=== PATIENT | male | born 1960 | race Caucasian/White ===

== ENCOUNTER → 2022-11-30 | Outpatient (CLI) | payer OTHER ==
--- NOTE | 2022-12-02 13:20 | PE ---
EXAMINATION TYPE: PET CT fusion skull to thigh DATE OF EXAM: 11/30/2022 COMPARISON: NONE at this institution. HISTORY: Solitary pulmonary nodule, recent abnormal MRI . History of recent spinal surgery July 19. TECHNIQUE: Following the intravenous administration of 12.12 mCi of F-18 FDG, whole body images are performed from the skull base to the midthigh. Images are reviewed on the computer in the coronal, a xial, and sagittal planes. Reconstructed rotating images are created on independent workstation and reviewed on the computer. A localization and attenuation correction CT is performed in conjunction with the PET scan. Blood glucose level = 81. SCAN: Initial Scan FINDINGS: SKULL BASE AND NECK: Symmetric uptake at level of the vocal cords is presumed physiologic. Abnormal right supraclavicular mass or lymph node posterior to right thyroid axial image 55 has max SUV of 4.9 6. There is abnormal hypermetabolic 1.2 cm right level 3 axillary adenopathy lateral to this on same image. Max SUV is 5.17. Additional abnormal hypermetabolic level 1 or 2 right axillary adenopathy axi al image 61 is present. CHEST, MEDIASTINUM, AND HILAR REGION: Mild to moderate underlying emphysematous changes are present. There is hypermetabolic right hilar mass or lymph node axial image 98 measuring 1.6 x 2.2 cm, max SUV is 7.39. Abnormal hypermetabolic right tracheobronchial and subcarinal adenopathy along with pericar inal and paratracheal adenopathy is also identified. For reference there is 1.9 x 1.5 cm paracarinal lymph node axial image 85 with max SUV of 8.9. Abnormal hypermetabolic adenopathy extends into the an terior superior mediastinum. No definitive peripheral hypermetabolic masses or nodules in either lung. ABDOMEN AND PELVIS: No hypermetabolic adrenal masses. Normal excretion. Some areas of nonspecific bow el uptake. No definitive abnormal hypermetabolic uptake. OSSEOUS STRUCTURES: Metabolic osseous lesions for reference right superior acetabular focus axial jovita ge [address] correlate, this has max SUV of 7.39. There is abnormal right iliac hyper metabolic focus image [address] correlate, Max SUV is 13.4. Smaller hypermetabolic le ft sacral and iliac foci are seen. Hypermetabolic foci throughout the thoracic and lumbar spine are a lso present. For reference midthoracic spine posteriorly axial image 77. OTHER CT: Coronary artery calcifications are present. Exophytic small thin-walled cyst posteriorly fr om the left kidney are present. Small fat containing left inguinal hernia. Disc space narrowing and e ndplate sclerosis at the lumbosacral junction incidentally noted IMPRESSION: Abnormal right hilar mass and/or adenopathy. There is abnormal thoracic adenopathy. There is abnormal right supraclavicular and axillary adenopathy. There is osseous metastatic disease prese nt throughout
== END | disposition home or self-care (01) ==
LOC: RADPETMAIN 11:44
PROVIDERS: ATTEND Internal Medicine
DX: C79.51 Secondary malignant neoplasm of bone (principal); R91.1 Solitary pulmonary nodule
CPT/HCPCS: 78815; A9552

== ENCOUNTER → 2023-05-01 | Outpatient (CLI) | payer OTHER ==
--- NOTE | 2023-05-02 07:46 | MR ---
EXAMINATION TYPE: MR lumbar spine wo/w con DATE OF EXAM: 05/01/2023 COMPARISON: PET CT November 25, 2022 HISTORY: NO prior, hx of lung CA, back pain from bone mets TECHNIQUE: Multiplanar, multisequence images of the lumbar spine is performed without and with IV contrast, util izing 7.5ml mL intravenous Gadavist FINDINGS: Scoliotic curvature to the lumbosacral junction is redemonstrated. Sagittal images of the l umbar spine shows new height Loss involving the superior L2 endplate. There is slight grade 1 anterolisthesis L3 on L4 and grade 1 retrolisthesis L4 on L5. Multilevel disc desiccation is present. Persistent moderate to advanced dis c space narrowing with heterogeneous Modic type I endplate change at L5-S1 level. The conus medullar is is normal in position and signal ending at the mid-L1 level. There is 1.6 cm Tarlov cyst posterio r to S2 level sagittal image 8. The bone marrow signal intensity is overall heterogeneous making evaluation suboptimal small suspicio us lesions on PET/CT involving anterior L2 vertebra in the anterior superior L5 endplates are less we ll seen on MRI. Likely suspicious enhancing lesion posterior L2 level on MRI sagittal image 29 and in ferior L3 level sagittal image 22 for reference. Advise bone scan imaging to better evaluate due to o verall heterogeneity of bone marrow on MRI to confirm suspected increasing multifocal osseous metasta tic disease. Axial images at T12-L1 level appear within normal limits. Axial images at L1-L2 level show mild broad disc bulge minimally effaces the anterior sac and mild to moderate facet arthropathy bilaterally. Axial images at L2-L3 level moderate facet arthropathy and ligamentum flavum hypertrophy pacing the p osterolateral thecal sac. There is posterior spur disc complex effacing the anterior thecal sac with right foraminal disc protrusion component causing [id number] right-sided neural foraminal narro wing. Axial images at L3-L4 level show moderate facet arthropathy effacing the posterolateral thecal sac an d mild to moderate broad-based posterior disc protrusion effaces the anterior thecal sac. Bilateral n eural foramina are patent. Axial images at L4-L5 level shows moderate left greater than right facet arthropathy effacing the pos terior lateral thecal sac. There is mild broad disc bulge mildly effaces the anterior thecal sac. The re is mild to moderate left-sided neural foraminal narrowing due to foraminal disc protrusion compone nt. Axial images at L5-S1 level show subtle spondylolisthesis with moderate facet arthropathy bilaterally . Mild broad disc bulge is seen. There is advanced left and mild right-sided neural foraminal narrowi ng. There is encroachment on the left L5 nerve due to left foraminal disc protrusion component. There are several small simple-appearing thin-walled cysts scattered throughout the visualized portio ns of the left kidney. IMPRESSION: 1. Suboptimal study but almost certainly there is diffuse ossific metastatic disease which has progre ssed from prior PET/CT. 2. Multilevel spondylolisthesis and degenerative change in the lumbar spine as detailed above.
== END | disposition home or self-care (01) ==
LOC: RADMRIMAIN 14:30
PROVIDERS: ATTEND Radiology Radiation Oncology
DX: C79.51 Secondary malignant neoplasm of bone (principal); M43.16 Spondylolisthesis, lumbar region; M47.816 Spondylosis without myelopathy or radiculopathy, lumbar region
CPT/HCPCS: 72158; A9585

== ENCOUNTER → 2023-06-03 | Outpatient (CLI) | payer OTHER ==
--- NOTE | 2023-06-03 13:05 | MR ---
EXAMINATION TYPE: MR brain wo/w con DATE OF EXAM: 06/03/2023 12:33 PM CLINICAL INDICATION:Male, 63 years old with history of C79.51 SECONDARY MALIGNANT NEOPLASM OF BONE; H x of Lung cancer COMPARISON: Pet/CT 11/30/2022 TECHNIQUE: Multi planar, multi sequence imaging was performed through the brain including: T1, T2, In version recovery, susceptibility weighted imaging and gradient echo imaging and Diffusion weighted im aging. The patient was then given intravenous contrast and multi planar, T1 fat-saturation images wer e obtained. IV Contrast: 6.5 cc Gadavist FINDINGS: Scattered enhancing lesions are present within the brain including the left cerebellum measuring 4 mm and 4 mm. Right cerebellum measuring 7 mm. Right sd posterior laterally measuring 7 mm. Matthew-white matter junction within the left frontal lobe series 701 image 125 measuring 2 mm and right frontal l obe series 702 image 34, right temporal lobe image 36 both 2 mm. The matthew-white junctions, ventricular system, basal cisterns appear unremarkable. Diffusion-weighted imaging shows no evidence of restricted diffusion to suggest acute/subacute infarct. Intracranial art erial flow voids are maintained. Midline structures show no abnormality. Scattered foci of high T2 si gnal intensity are seen within the periventricular white matter. The susceptibility weighted images v entricular multiple punctate foci of blooming artifact most pronounced in the occipital lobes cerebel lar hemispheres right sd and also along the central sclerotic focus cortex. The bone marrow signal is within normal limits. Paranasal sinuses and mastoid air cells: No significant paranasal sinus disease. Visualized orbits: Orbital contents are intact. IMPRESSION: 1. Scattered enhancing foci compatible with metastatic disease given history of malignancy. 2. Nonspecific white matter change.
== END | disposition home or self-care (01) ==
LOC: RADMRIMAIN 11:32
PROVIDERS: ATTEND Radiology Radiation Oncology
DX: C79.51 Secondary malignant neoplasm of bone (principal); R90.82 White matter disease, unspecified
CPT/HCPCS: 70553; A9585

== ENCOUNTER 2023-06-28 15:59 | Inpatient (IN) | payer MEDICAID, OTHER ==
[2023-06-28 16:11] VITALS: TEMP 97.8
[2023-06-28] MEDS ORDERED: SODIUM CHLORIDE 0.9% 1,000 ML IV STA (16:15)
[2023-06-28] MEDS ORDERED: ONDANSETRON 4 MG/2 ML VIAL IVP PRN (16:17)
[2023-06-28] MEDS ORDERED: ACETAMINOPHEN TAB 325 MG TAB PO PRN (16:17)
[2023-06-28] MEDS ORDERED: NALOXONE 0.4 MG/ML 1 ML VIAL IV PRN (16:17)
--- NOTE | 2023-06-28 16:22 | ED ---
General Adult HPI - General Chief complaint: Altered Mental Status Stated complaint: combative Time Seen by Provider: 06/28/23 16:06 Source: family, EMS, RN notes reviewed, old records reviewed Mode of arrival: EMS Limitations: altered mental status - History of Present Illness Initial comments: Patient is a 63-year-old male who presents emergency Department complaining of agitation worsening altered mental status. Has stage IV lung cancer. Was undergoing chemotherapy which stopped. Was evaluated earlier today for similar complaints with plan for discharge home with hospice. Patient's took the patient home with plan for hospice however patient has been more agitated at home and does not follow direction. Patient's is concerned that she cannot take care of him in his current state which is why she brings him back in. No subsequent changes at home throughout the day, however patient's feels she can not take care of him. Brings him back in for admission to hospice after speaking with the hospice nurse. Brought in for inpatient admission for hospice evaluation. - Related Data Home Medications Medication Instructions Recorded Confirmed Gabapentin 600 mg PO TID 12/17/22 06/28/23 LORazepam [Ativan] 0.5 mg PO ONETIME 06/28/23 06/28/23 Morphine Sulfate ER [Ms Contin] 100 mg PO Q8H 06/28/23 06/28/23 dexAMETHasone [Decadron] See Taper PO DAILY 06/28/23 06/28/23 oxyCODONE HCL [oxyCODONE HCL (IR)] 30 mg PO Q4H 06/28/23 06/28/23 Allergies Allergy/AdvReac Type Severity Reaction Status Date / Time No Known Allergies Allergy Verified 06/28/23 17:13 Review of Systems ROS Statement: Those systems with pertinent positive or pertinent negative responses have been documented in the HPI. ROS Other: All systems not noted in ROS Statement are negative. Past Medical History Past Medical History: Cancer, Hypertension Additional Past Medical History / Comment(s): Lung CA History of Any Multi-Drug Resistant Organisms: None Reported Past Surgical History: Back Surgery Additional Past Surgical History / Comment(s): Back surgery 07/26 Smoking Status: Former smoker Past Alcohol Use History: None Reported Past Drug Use History: None Reported General Exam - General Exam Comments Initial Comments: General: Patient appears mildly agitated. Not cooperative.Patient appears cachectic. HEAD: Normal with no signs of head trauma. EYES: PERRLA, EOMI, conjunctiva normal, no discharge. Pupils are 3 mm equal bilaterally. ENT: Hearing grossly intact, normal oropharynx. RESPIRATORY: Clear breath sounds bilaterally. No wheezes, rales, or rhonchi. C/V: Regular rate and rhythm. S1 and S2 auscultated, no edema, peripheral pulses 2+ and intact throughout ABD: Abd is soft, nontender, nondistended EXT: Normal range of motion, no obvious deformity SKIN: No rashes or lesions observed on exposed skin. NEURO: Alert but not oriented. Moving all 4 extremities. Limitations: altered mental status Course Vital Signs 06/28/23 06/28/23 16:07 19:11 Temperature 97.8 F Pulse Rate 103 H 88 Respiratory 18 20 Rate Blood Pressure 120/71 116/69 O2 Sat by Pulse 98 96 Oximetry Medical Decision Making - Medical Decision Making Was pt. sent in by a medical professional or institution (, PA, SPECIAL EVENTS MANAGER, urgent care, hospital, or [place] [facility] facility...) When possible be specific @ -Instructed by home hospice to re-present to the ER per patient's . Did you speak to anyone other than the patient for history (EMS, parent, family, police, friend...)? What history was obtained from this source @ -Patient's provided all the patient's history. Did you review nursing and triage notes (agree or disagree)? Why? @ -I reviewed and agree with nursing and triage notes Were old charts reviewed (outside hosp., previous admission, EMS record, old EKG, old radiological studies, urgent care reports/EKG's, [place] [facility] records)? Report findings @ -Reviewed notes from previous visit earlier today. Differential Diagnosis (chest pain, altered mental status, abdominal pain women, abdominal pain men, vaginal bleeding, weakness, fever, dyspnea, syncope, headache, dizziness, GI bleed, back pain, seizure, CVA, palpatations, mental health, musculoskeletal)? @ -Altered mental status, worsening cancer, dehydration, desire for hospice. This list is not all inclusive. EKG interpreted by me (3pts min.). @ -None done X-rays interpreted by me (1pt min.). @ -None done CT interpreted by me (1pt min.). @ -None done U/S interpreted by me (1pt. min.). @ -None done What testing was considered but not performed or refused? (CT, X-rays, U/S, labs)? Why? @ -None What meds were considered but not given or refused? Why? @ -None Did you discuss the management of the patient with other professionals (professionals i.e. , PA, SPECIAL EVENTS MANAGER, lab, RT, psych nurse, delinquency prevention social worker, customer experience specialist, teacher, admissions officer, case operator)? Give summary @ -No Was smoking cessation discussed for >3mins.? @ -No Was critical care preformed (if so, how long)? @ -No Were there social determinants of health that impacted care today? How? (H omelessness, low income, unemployed, alcoholism, drug addiction, transportation, low edu. Level, literacy, decrease access to med. care, retirement, rehab)? @ -No Was there de-escalation of care discussed even if they declined (Discuss DNR or withdrawal of care, Hospice)? DNR status @ -Yes, discussed with patient's who confirmed the patient is a DO NOT RESUSCITATE. What co-morbidities impacted this encounter? (DM, HTN, Smoking, COPD, CAD, Cancer, CVA, ARF, Chemo, Hep., AIDS, mental health diagnosis, sleep apnea, morbid obesity)? @ -None Was patient admitted / discharged? Hospital course, mention meds given and route, prescriptions, significant lab abnormalities, going to OR and other pertinent info. @ -Based on the patient's presentation and physical exam, I did review his workup from earlier today which is relatively unremarkable including CT brain. Plan was for discharge home with hospice care. However patient has been unmanageable at home and patient's called hospice instructed her to bring him to the emergency department for further evaluation and inpatient admission. I do not believe that we need to repeat any of the workup at this time as patient will be admitted to inpatient hospice. Hospice has been consulted and presented at bedside to evaluate patient. I spoke with the admitting physician, Dr. Pagan who accepted the admission. We will place an IV for IV fluids but otherwise admit for hospice. Vital signs within acceptable limits. Patient was made DO NOT RESUSCITATE. Discussed with patient's was in agreement. Undiagnosed new problem with uncertain prognosis? @ -No Drug Therapy requiring intensive monitoring for toxicity (Heparin, Nitro, Insulin, Cardizem)? @ -No Were any procedures done? @ -No Diagnosis/symptom? @ -Stage IV cancer, admitted for hospice, altered mental status Acute, or Chronic, or Acute on Chronic? @ -Acute on chronic Uncomplicated (without systemic symptoms) or Complicated (systemic symptoms)? @ -Complicated Side effects of treatment? @ -No Exacerbation, Progression, or Severe Exacerbation? @ -Progression Poses a threat to life or bodily function? How? (Chest pain, USA, VT, pneumonia, PE, COPD, DKA, ARF, appy, cholecystitis, CVA, Diverticulitis, Homicidal, Suicidal, threat to staff... and all critical care pts) @ -Yes Disposition Clinical Impression: AMS (altered mental status), Stage 4 lung cancer, Hospice care Disposition: ADMITTED IP TO THIS HOSP Condition: Poor Time of Disposition: 16:20
[2023-06-28] MEDS ORDERED: HALOPERIDOL LACTATE 5 MG/ML 1 ML VIAL IVP PRN (16:37)
[2023-06-28] MEDS ORDERED: SCOPOLAMINE 1 MG/72 HR PATCH TRANSDERM STA (16:45)
[2023-06-28] MEDS: LORazepam 2 MG/ML INJ IV PRN ×2 (17:25→20:18)
[2023-06-28] MEDS ORDERED: MORPHINE CONC SOLN 10mg/0.5mL ORAL SYRG PO PRN (17:54)
--- NOTE | 2023-06-28 17:55 | P.HPIM ---
History of Present Illness H&P Date: 06/28/23 Chief Complaint: agitation 63-year-old man with stage IV lung cancer metastatic to the brain presented for evaluation of agitation. Patient was previously seen and sent home after signing up for hospice. Hospice services had seen the patient for approximately one half hours at home prior to presentation to the ER, and noted that the patient's significant agitation and multiple falls at home and candidate for inpatient hospitalization with anticipation of [place] to [place] [facility] with hosp[facility] services. Upon my evaluation, patient was significantly altered and had hyperactive delirium and was unable to participate in my interview. Review of systems therefore could not be completed. Today, patient is afebrile, 120/71, heart rate 103, 98% on room air. No labs to review. No images for review. See HPI regarding review of systems Gen: awake, alert HEENT: normocephalic, atraumatic, good hearing acuity, moist mucous membranes Resp: good air exchange, breathing comfortably with no accessory muscle use CVS: good distal perfusion x 4, GI: soft, NTTP, ND : no SPT, no CVAT, robert catheter not present MSK: no pitting edema, no clubbing Neuro: non-focal, moving all extremities Assessment: Hyperactive delirium Metastatic lung cancer to the brain Chronic pain due to cancer Plan: Vital signs reviewed as above Discussed the case with hospice nursing practitioner as well as the emergency room provider, decision was made to admit the patient to the hospital for control of agitation issues as well as referral to a [place] [facility] where patient can receive hospice services Fentanyl patch 25 g every 72 hours was placed Home medications of oxycodone instant release 30 mg every 4 hours when necessary, MS Contin 100 mg 3 times a day were resumed 1 mg Ativan every 2 hours when necessary for agitation 1 mg Haldol every 4 hours when necessary for agitation Glycopyrrolate, scopolamine patch ordered for secretions I will also add Roxanol since patient has difficulty swallowing Patient is DO NOT RESUSCITATE/DO NOT INTUBATE Past Medical History Past Medical History: Cancer, Hypertension Additional Past Medical History / Comment(s): Lung CA History of Any Multi-Drug Resistant Organisms: None Reported Past Surgical History: Back Surgery Additional Past Surgical History / Comment(s): Back surgery 07/26 Smoking Status: Former smoker Past Alcohol Use History: None Reported Past Drug Use History: None Reported Medications and Allergies Home Medications Medication Instructions Recorded Confirmed Type Gabapentin 600 mg PO TID 12/17/22 06/28/23 History LORazepam [Ativan] 0.5 mg PO ONETIME 06/28/23 06/28/23 History Morphine Sulfate ER [Ms Contin] 100 mg PO Q8H 06/28/23 06/28/23 History dexAMETHasone [Decadron] See Taper PO DAILY 06/28/23 06/28/23 History oxyCODONE HCL [oxyCODONE HCL (IR)] 30 mg PO Q4H 06/28/23 06/28/23 History Allergies Allergy/AdvReac Type Severity Reaction Status Date / Time No Known Allergies Allergy Verified 06/28/23 17:13 Physical Exam Osteopathic Statement: *. No significant issues noted on an osteopathic structural exam other than those noted in the History and Physical/Consult. Vitals: Vital Signs Temp Pulse Resp BP Pulse Ox 06/28/23 16:07 97.8 F 103 H 18 120/71 98 Intake and Output 06/28/23 06/28/23 06/28/23 06:59 14:59 22:59 Other: Weight 56.245 kg
[2023-06-28] MEDS: GABAPENTIN 300 MG CAP PO SCH ×2 (18:26→20:21)
[2023-06-28] MEDS: MORPHINE SULFATE ER 100 MG TABLET PO SCH (18:27)
[2023-06-28 19:38] VITALS: RESP 20
[2023-06-28] MEDS ORDERED: QUEtiapine 50 MG TAB PO SCH (21:00)
[2023-06-29] MEDS: MORPHINE SULFATE ER 100 MG TABLET PO SCH ×2 (01:52→08:07)
[2023-06-29] MEDS: LORazepam 2 MG/ML INJ IV PRN ×3 (01:56→16:02)
[2023-06-29 02:48] VITALS: BP 122/71; PULSE 107
[2023-06-29] MEDS: GLYCOPYRROLATE 0.2 MG/ML 2 ML VIAL IVP PRN ×2 (04:13→14:14)
[2023-06-29] MEDS: GABAPENTIN 300 MG CAP PO SCH (08:08)
[2023-06-29] MEDS ORDERED: ATROPINE OPHTH SOLN 1% 5ML BTL SUBLINGUAL PRN (08:18)
[2023-06-29] MEDS ORDERED: MORPHINE SULFATE 4 MG/ML SYRINGE IV PRN (08:18)
[2023-06-29] MEDS ORDERED: MORPHINE SULFATE (100 MG/2 ML) 100 MG in SODIUM CHLORIDE 0.9% 100 ML IV SCH (08:30)
[2023-06-29] MEDS ORDERED: dexAMETHasone 4 MG TAB PO SCH (09:00)
[2023-06-29 12:45] VITALS: BMI 17.2
--- NOTE | 2023-06-29 17:26 | P.PN ---
Subjective Progress Note Date: 06/29/23 Pt is obtonded today. Agitated with signifcant resp distress. Uptitrating [facility] COurse: 63-year-old man with stage IV lung cancer metastatic to the brain presented for evaluation of agitation. Gen: awake, alert HEENT: normocephalic, atraumatic, good hearing acuity, moist mucous membranes Resp: good air exchange, breathing comfortably with no accessory muscle use CVS: good distal perfusion x 4, GI: soft, NTTP, ND : no SPT, no CVAT, robert catheter not present MSK: no pitting edema, no clubbing Neuro: non-focal, moving all extremities Assessment: Hyperactive delirium Metastatic lung cancer to the brain Chronic pain due to cancer Plan: Discussed case with hospice nurse. We will initiate morphine gtt and titrate up. Morphine IVP PRN added as well Fentanyl patch 25 g every 72 hours was placed Home medications of oxycodone instant release 30 mg every 4 hours when necessar y, MS Contin 100 mg 3 times a day were resumed 1 mg Ativan every 2 hours when necessary for agitation 1 mg Haldol every 4 hours when necessary for agitation Glycopyrrolate, scopolamine patch ordered for secretions Roxanol since patient has difficulty swallowing Patient is DO NOT RESUSCITATE/DO NOT INTUBATE Objective - Vital Signs Vital signs: Vital Signs Temp 97.8 F 06/29/23 01:47 Pulse 107 H 06/29/23 01:47 Resp 20 06/29/23 01:47 BP 122/71 06/29/23 01:47 Pulse Ox 95 06/29/23 01:47 FiO2 Intake & Output 06/28/23 06/29/23 06/29/23 18:59 06:59 18:59 Intake Total 0 20.560 Output Total 800 2400 Balance -800 -2400 20.560 Weight 56.245 kg 56.245 kg 56.245 kg Intake: Intake, IV Titration 20.560 Amount Morphine Sulfate (100 mg/ 20.560 2 ml) 100 mg In Sodium Chloride 0.9% 100 ml @ 1 MG/HR 1.02 mls/hr IV . Q24H [facility] Rx#:[id number] Oral 0 Output: Urine 800 2400 Uretheral (Robert) 800 Other: Voiding Method Indwelling Catheter Indwelling Catheter # Bowel Movements 0
--- NOTE | 2023-06-30 18:15 | P.DS ---
Providers Date of admission: 06/28/23 16:17 Expected date of discharge: 06/30/23 Attending physician: Yonny Pagan MD Primary care physician: Zbigniew Caraballo MD Hospital Course: Assessment: Hyperactive delirium Metastatic lung cancer to the brain Chronic pain due to cancer Hospital Course: 63-year-old man with stage IV lung cancer metastatic to the brain presented for evaluation of agitation. Patient was admitted to the hospital and given ativan for agitation. He unfortunately declined rapidly, and was placed on comfort care medications for air hunger and agitation including morphine gtt, ativan PRN, and scopolamine patch for secretions. Pt peacefully on 06/29 at 21:33 No phx completed with this summary - see 06/29 progress note for the phx on that day of evaluation. Patient Condition at Discharge: Good Plan - Discharge Summary New Discharge Prescriptions: No Action Morphine Sulfate ER [Ms Contin] 100 mg PO Q8H oxyCODONE HCL [oxyCODONE HCL (IR)] 30 mg PO Q4H dexAMETHasone [Decadron] See Taper PO DAILY Gabapentin 600 mg PO TID LORazepam [Ativan] 0.5 mg PO ONETIME Discharge Medication List Gabapentin 600 mg PO TID 12/17/22 [History] LORazepam [Ativan] 0.5 mg PO ONETIME 06/28/23 [History] Morphine Sulfate ER [Ms Contin] 100 mg PO Q8H 06/28/23 [History] dexAMETHasone [Decadron] See Taper PO DAILY 06/28/23 [History] oxyCODONE HCL [oxyCODONE HCL (IR)] 30 mg PO Q4H 06/28/23 [History] Follow up Appointment(s)/Referral(s): Zbigniew Caraballo MD [Primary Care Provider] - 1-2 days Discharge Disposition: - Preliminary Cause of Preliminary Cause of : Metastatic Lung Cancer
== END 2023-06-30 01:34 | disposition expired | DRG 951 ==
LOC: EC 15:59 → 5NMEDONC 16:17
PROVIDERS: ADMIT Student in an Organized Health Care Education/Training Program; ATTEND Student in an Organized Health Care Education/Training Program
DX: Z51.5 Encounter for palliative care (principal); C34.90 Malignant neoplasm of unspecified part of unspecified bronchus or lung; C79.31 Secondary malignant neoplasm of brain; G89.3 Neoplasm related pain (acute) (chronic); I10 Essential (primary) hypertension; R13.10 Dysphagia, unspecified; R29.6 Repeated falls; Z66 Do not resuscitate; Z79.899 Other long term (current) drug therapy; Z85.118 Personal history of other malignant neoplasm of bronchus and lung; Z87.891 Personal history of nicotine dependence
CPT/HCPCS: 96361; 96374; 99285